=== PATIENT | female | born 1985 | race Caucasian/White ===

== ENCOUNTER 2017-10-16 01:18 | Emergency (ER) | payer MEDICAID ==
[2017-10-16] MEDS: IPRATROPIUM (NEB) 0.5 MG/2.5 ML AMP INH (02:12)
[2017-10-16] MEDS: LEVALBUTEROL (NEB) 1.25 MG/0.5 ML AMP INH (02:13)
[2017-10-16] MEDS: SOD CHLORIDE 0.9% 1,000 ML IV (02:16)
[2017-10-16] MEDS: METHYLPREDNISOLONE 125 MG INJ IV (03:46)
== END 2017-10-16 04:11 | disposition home or self-care (01) ==
LOC: FTE 01:18
DX: J45.901 Unspecified asthma with (acute) exacerbation (principal)
CPT/HCPCS: 71045; 94644; 96374; 99284-25